=== PATIENT | female | born 2000 | race Caucasian/White ===

== ENCOUNTER 2020-10-28 18:42 | Inpatient (IN) | payer OTHER, SELFPAY ==
[~2020-10-28] VITALS: Ht 165.1 cm; Wt 54.4 kg
[2020-10-28 21:30] LABS: CALCIUM 7.7 mg/dL (8.5-10.1); CARBON DIOXIDE 25.1 mmol/L (21-32); CHLORIDE SERUM 102 mmol/L (98-107); CREATININE SERUM 0.9 mg/dL (0.6-1.0); GFR1 > 60 mL/min; GLUCOSE SERUM 112 mg/dL (74-106); POTASSIUM SERUM 3.1 mmol/L (3.5-5.1); SODIUM SERUM 138 mmol/L (136-145)
[2020-10-28 21:33] LABS: RED CELL DISTRIBUTION WIDTH 12.9 % (11.5-14.5)
[2020-10-28 21:34] LABS: ALBUMIN 3.4 g/dL (3.4-5.0); ALKALINE PHOSPHATASE 44 U/L (46-116); ALT/SGPT 54 U/L (14-59); AST/SGOT 35 U/L (15-37); BILIRUBIN TOTAL 0.3 mg/dL (0.20-1.00); LACTIC DEHYDROGENASE (LDH) 277 U/L (100-190); PLATELET COUNT 125 x10^3mcL (130-400); TOTAL PROTEIN, SERUM 6.9 g/dL (6.4-8.2)
[2020-10-28 21:58] LABS: BAND NEUTROPHIL 13 % (0-10); BASOPHIL 0 % (0-2); MONOCYTE 3 % (0-7); SEGMENTED NEUTROPHILS 28 % (37-75)
[2020-10-28 22:01] LABS: rbc morphology (normal/abnorm) NORMAL (NORMAL)
[2020-10-28 22:54] LABS: UA SPECIFIC GRAVITY 1.015 (1.005-1.035); microscopic required? YES; urine erythrocyte NEGATIVE (NEGATIVE)
[2020-10-29] VITALS (8 sets, daily range): BP systolic 88–109; BP diastolic 49–58; Ht 165.1 cm; Wt 54.4 kg
[2020-10-29 01:12] LABS: MAGNESIUM 1.6 mg/dL (1.8-2.4); PHOSPHOROUS 3.5 mg/dL (2.5-4.9)
[2020-10-29] MEDS ORDERED: LEVOTHYROXIN0.075 M2 PO (03:46)
[2020-10-29 07:39] LABS: RED CELL DISTRIBUTION WIDTH 13.1 % (11.5-14.5)
[2020-10-29 07:49] LABS: C REACTIVE PROTEIN 3.8 mg/dL (<=0.9); CALCIUM 7.9 mg/dL (8.5-10.1); CARBON DIOXIDE 26.3 mmol/L (21-32); CHLORIDE SERUM 108 mmol/L (98-107); CREATININE SERUM 0.8 mg/dL (0.6-1.0); GFR1 > 60 mL/min; GLUCOSE SERUM 95 mg/dL (74-106); MAGNESIUM 1.9 mg/dL (1.8-2.4); PHOSPHOROUS 3.4 mg/dL (2.5-4.9); POTASSIUM SERUM 3.4 mmol/L (3.5-5.1); SODIUM SERUM 143 mmol/L (136-145)
[2020-10-29 08:01] LABS: PLATELET COUNT 115 x10^3mcL (130-400)
[2020-10-29 10:56] LABS: MONOCYTE 5 % (0-7); SEGMENTED NEUTROPHILS 67 % (37-75); rbc morphology (normal/abnorm) NORMAL (NORMAL)
[2020-10-30 06:03] VITALS: BP 102/54
[2020-10-30 07:39] LABS: CALCIUM 8.8 mg/dL (8.5-10.1); CARBON DIOXIDE 21.1 mmol/L (21-32); CHLORIDE SERUM 101 mmol/L (98-107); CREATININE SERUM 0.9 mg/dL (0.6-1.0); GFR1 > 60 mL/min; GLUCOSE SERUM 71 mg/dL (74-106); POTASSIUM SERUM 3.9 mmol/L (3.5-5.1); SODIUM SERUM 138 mmol/L (136-145)
[2020-10-30 09:18] LABS: BASOPHIL % 0.3 % (0-2); PLATELET COUNT 147 x10^3mcL (130-400); RED CELL DISTRIBUTION WIDTH 12.3 % (11.5-14.5)
[2020-10-30 09:28] VITALS: BP 91/51
[2020-10-30 12:38] VITALS: BP 84/40
[2020-10-30 21:21] VITALS: BP 106/60
[2020-10-31 05:50] VITALS: BP 93/54
[2020-10-31 07:58] LABS: CALCIUM 8.5 mg/dL (8.5-10.1); CARBON DIOXIDE 26.3 mmol/L (21-32); CHLORIDE SERUM 102 mmol/L (98-107); CREATININE SERUM 0.7 mg/dL (0.6-1.0); GFR1 > 60 mL/min; GLUCOSE SERUM 70 mg/dL (74-106); POTASSIUM SERUM 4.6 mmol/L (3.5-5.1); SODIUM SERUM 139 mmol/L (136-145)
[2020-10-31 08:02] LABS: PLATELET COUNT 165 x10^3mcL (130-400); RED CELL DISTRIBUTION WIDTH 13.3 % (11.5-14.5)
[2020-10-31 09:13] VITALS: BP 89/45
[2020-10-31 12:24] VITALS: BP 86/47
[2020-10-31 12:36] LABS: SEGMENTED NEUTROPHILS 68 % (37-75)
[2020-10-31 12:37] LABS: MONOCYTE 7 % (0-7); PLATELET MORPHOLOGY GIANT PLATELET SEEN; burr cell (echinocyte) 1+; rbc morphology (normal/abnorm) ABNORMAL (NORMAL)
[2020-10-31 17:00] VITALS: BP 95/40
[2020-10-31 21:23] VITALS: BP 100/60
[2020-11-01 05:38] VITALS: BP 92/48
[2020-11-01 07:27] LABS: BASOPHIL % 0.1 % (0-2); PLATELET COUNT 155 x10^3mcL (130-400); RED CELL DISTRIBUTION WIDTH 13.1 % (11.5-14.5)
[2020-11-01 07:35] LABS: CARBON DIOXIDE 21.4 mmol/L (21-32); CHLORIDE SERUM 99 mmol/L (98-107); CREATININE SERUM 0.8 mg/dL (0.6-1.0); GFR1 > 60 mL/min; GLUCOSE SERUM 90 mg/dL (74-106); POTASSIUM SERUM 3.9 mmol/L (3.5-5.1); SODIUM SERUM 135 mmol/L (136-145)
[2020-11-01 09:09] VITALS: BP 87/48
[2020-11-01 12:33] VITALS: BP 97/45
[2020-11-01 16:28] VITALS: BP 100/49
[2020-11-01 22:28] VITALS: BP 93/52
[2020-11-02 06:39] VITALS: BP 89/52
[2020-11-02 07:25] LABS: CALCIUM 8.2 mg/dL (8.5-10.1); CARBON DIOXIDE 25.7 mmol/L (21-32); CHLORIDE SERUM 102 mmol/L (98-107); CREATININE SERUM 0.8 mg/dL (0.6-1.0); GFR1 > 60 mL/min; GLUCOSE SERUM 71 mg/dL (74-106); POTASSIUM SERUM 3.8 mmol/L (3.5-5.1); SODIUM SERUM 140 mmol/L (136-145)
[2020-11-02 08:06] LABS: BASOPHIL % 0.3 % (0-2); PLATELET COUNT 160 x10^3mcL (130-400); RED CELL DISTRIBUTION WIDTH 12.4 % (11.5-14.5)
[2020-11-02 08:27] VITALS: BP 92/46
[2020-11-02] MEDS ORDERED: PROAIR RES117 MCG/Ac INH (09:58)
[2020-11-02] MEDS ORDERED: LEV500 PO (09:58)
[2020-11-02 12:01] VITALS: BP 83/52
== END 2020-11-02 15:30 | disposition home or self-care (01) | DRG 871 ==
LOC: ED 18:42 → DU 22:36
PROVIDERS: Internal Medicine; Specialist; ADMIT Family Medicine; ATTEND Family Medicine
DX: A41.89 Other specified sepsis (principal); U07.1 COVID-19; J12.89 Other viral pneumonia; J96.00 Acute respiratory failure, unspecified whether with hypoxia or hypercapnia; N39.0 Urinary tract infection, site not specified; E03.9 Hypothyroidism, unspecified; E87.6 Hypokalemia; B96.20 Unspecified Escherichia coli [E. coli] as the cause of diseases classified elsewhere; E83.42 Hypomagnesemia; Z88.1 Allergy status to other antibiotic agents; Q90.9 Down syndrome, unspecified
CPT/HCPCS: 36600; 83880; 85378; 87804; G0378; J0696; J1650; J1956; J2405; J7040; J7050; J7060; U0003